=== PATIENT | female | born 1970 | race Caucasian/White ===

== ENCOUNTER → 2016-10-16 | Day surgery (SDC) | payer BC ==
[2016-09-21 08:30] VITALS: BMI 41.0
[~2016-10-16] MED LIST: LEVO100T7 PO; LIDOCAINE HCL 2% 2 ML VIAL (20MG/ML) ONE; PROPOFOL IV EMULSION 10 MG/ML 20 ML VIAL IV ONE; SODIUM CHLORIDE 0.9% 500ML 500 ML IV ONE; VALS160T58 PO
--- NOTE | 2016-10-16 08:50 | Endo History and Physical ---
History & Physical Date of Service: Oct 16, 2016. Chief Complaint: family history of colon cancer Referring Physician: Dr. Yoni Bolaños History of Present Illness 46 yo CF who presents for colonoscopy secondary to family history of colon cancer. Past Surgical History Hx Cardiac Surgery: No Hx Internal Defibrillator: No Hx Pacemaker: No Hx Abdominal Surgery: No Hx of Implantable Prosthesis: No Hx Post-Op Nausea and Vomiting: No Hx Cancer Surgery: Yes (LEFT LUMPECTOMY) Hx Thoracic Surgery: No Hx Orthopedic: No Hx Urinary Tract Surgery: No Family History Colon CA Social History Smoking Status: Never Smoker Hx Substance Use: No Hx Alcohol Use: No Allergies Coded Allergies: No Known Allergies (Verified , 10/16/16) Current Medications Reported Home Medications Medications Dose Route/Sig Max Daily Dose Days Date Category Diovan Hct 160MG/12.5MG (HCTZ/Valsartan) 1 Tab Tab 1 Tab PO QAM 09/21/16 Reported Levothyroxine Sodium 100 Mcg Tab 1 Tab PO QAM 90 09/21/16 Reported Vital Signs Weight (Kilograms): 102.27 Height (Feet): 5 Height (Inches): 2 Date Time Temp Pulse Resp B/P Pulse Ox O2 Delivery O2 Flow Rate FiO2 10/16/16 08:15 37.1 81 18 166/93 96 Room Air Physical Exam General Appearance: WD/WN, no apparent distress Respiratory/Chest: Auscultation: breath sounds normal Cardiovascular: Heart Auscultation: RRR Abdomen: Bowel Sounds: normal Inspection & Palpation: soft, non-distended, no tenderness, guarding & rebound Assessment and Plan Assessment: 46 yo CF who presents for colonoscopy secondary to family history of colon cancer. Plan: Proceed with colonoscopy.
--- NOTE | 2016-10-16 09:08 | Discharge Instructions ---
Endoscopy Patient Instructions Date / Procedure(s) Performed Oct 16, 2016. Colonoscopy Allergy Information Coded Allergies: No Known Allergies (Verified , 10/16/16) Discharge Date / Findings Oct 16, 2016. Normal colonoscopy Medication Instructions OK to resume all medications today as prescribed Reported Home Medications Medications Dose Route/Sig Max Daily Dose Days Date Category Diovan Hct 160MG/12.5MG (HCTZ/Valsartan) 1 Tab Tab 1 Tab PO QAM 09/21/16 Reported Levothyroxine Sodium 100 Mcg Tab 1 Tab PO QAM 90 09/21/16 Reported Provider Instructions Activity Restrictions - No exercising or heavy lifting for 24 hours. - Do not drink alcohol the day of the procedure. - Do not drive a car or operate machinery until the day after the procedure. - Do not make any important decisions or sign important papers in 24 hours after the procedure. Following Day: - Return to full activity which may include returning to work/school. Diet Start your diet with liquids and light foods (jello, soup, juice, toast). Then eat your usual diet if not nauseated. Treatment For Common After Affects For mild abdominal pain, bloating, or excessive gas: - Rest - Eat lightly - Lie on right side Follow-Up Information Follow-up with Dr. Yoni Bolaños as scheduled Anesthesia Information What You Should Know You have had a procedure that required some medicine to reduce anxiety and discomfort. This treatment is called moderate sedation. After receiving the treatment, you may be sleepy, but you will be able to breathe on your own. The effects of the treatment may last for several hours. Follow these instructions along with Activity/Diet recommendations noted above: * Do NOT do anything where dizziness or clumsiness would be dangerous. * Rest quietly at home today, then you can be up and about tomorrow. * Have a responsible person stay with you the rest of today. * You may have had an I.V. today. If so, you may take the dressing off later today. Recommendations Call your doctor if: * Trouble breathing * Continuous vomiting for more than 24 hours * Temperature above 101 degrees * Severe abdominal pain or bloating * Pain not relieved by pain medicine ordered * There is increased drainage or redness from any incision * A large amount of rectal bleeding greater than 2-3 tablespoons. (If you had a polyp/s removed or have hemorrhoids, a small amount of blood - from the rectum is to be expected.) * You have any unanswered questions or concerns. IN THE EVENT OF A SERIOUS EMERGENCY, GO TO THE NEAREST EMERGENCY ROOM Your discharge instructions were prepared by provider Michael Gorman. Patient Instructions Signature Page Jennifer Boone Patient (or Guardian) Signature/Date: I have read and understand the instructions given to me by my caregivers. Caregiver/RN/Doctor Signature/Date: The above-named patient and/or guardian has received patient instructions on this date. + Original Patient Signature Page (only) stays with chart. Please make copy for patient.
--- NOTE | 2016-10-16 09:14 | GI REPORT ---
Procedure Date: 10/16/2016 8:48 AM Procedure: Colonoscopy Indications: Family history of colon cancer in a first-degree relative Medicines: Monitored Anesthesia Care Complications: No immediate complications. Estimated Blood Loss: Estimated blood loss: none. Procedure: Pre-Anesthesia Assessment: - Prior to the procedure, a History and Physical was performed, and patient medications and allergies were reviewed. The patient's tolerance of previous anesthesia was also reviewed. The risks and benefits of the procedure and the sedation options and risks were discussed with the patient. All questions were answered, and informed consent was obtained. Prior Anticoagulants: The patient has taken no previous anticoagulant or antiplatelet agents. ASA Grade Assessment: II - A patient with mild systemic disease. After reviewing the risks and benefits, the patient was deemed in satisfactory condition to undergo the procedure. After I obtained informed consent, the scope was passed under direct vision. Throughout the procedure, the patient's blood pressure, pulse, and oxygen saturations were monitored continuously. The On-site loaner was introduced through the anus and advanced to the terminal ileum. The colonoscopy was performed without difficulty. The patient tolerated the procedure well. The quality of the bowel preparation was good. The terminal ileum, ileocecal valve, appendiceal orifice, and rectum were photographed. Findings: The colon (entire examined portion) appeared normal. Impression: - The entire examined colon is normal. - No specimens collected. Recommendation: - Resume previous diet. - Continue present medications. - Repeat colonoscopy in 5 years for surveillance. - Return to primary care physician as previously scheduled. Michael Gorman DO 10/16/2016 9:13:24 AM This report has been signed electronically. Note Initiated On: 10/16/2016 8:48 AM
--- NOTE | 2016-10-16 09:17 | Anesthesiology Progress Note ---
Anesthesia Post Op Note Date & Time Oct 16, 2016 at 09:16 Vital Signs Pain Intensity: 0 Vital Signs Past 12 Hours Date Time Temp Pulse Resp B/P Pulse Ox O2 Delivery O2 Flow Rate FiO2 10/16/16 08:15 37.1 81 18 166/93 96 Room Air Notes Mental Status: alert / awake / arousable, participated in evaluation Pt Amnestic to Procedure: Yes Nausea / Vomiting: adequately controlled Pain: adequately controlled Airway Patency, RR, SpO2: stable & adequate BP & HR: stable & adequate Hydration State: stable & adequate Anesthetic Complications: no major complications apparent
[2016-10-16 09:40] VITALS: BP 133/80; PULSE 72; O2SAT 95
== END | disposition home or self-care (01) ==
LOC: C.GI 07:40
PROVIDERS: ATTEND Internal Medicine
DX: Z12.11 Encounter for screening for malignant neoplasm of colon (principal); Z83.71 Family history of colonic polyps; I10 Essential (primary) hypertension; Z98.890 Other specified postprocedural states; Z68.41 Body mass index [BMI] 40.0-44.9, adult; Z90.89 Acquired absence of other organs; Z85.3 Personal history of malignant neoplasm of breast

== ENCOUNTER → 2017-12-27 | Outpatient (CLI) | payer BC ==
[~2017-12-27] MED LIST changes: -LIDOCAINE HCL 2% 2 ML VIAL (20MG/ML) ONE; -PROPOFOL IV EMULSION 10 MG/ML 20 ML VIAL IV ONE; -SODIUM CHLORIDE 0.9% 500ML 500 ML IV ONE
== END | disposition home or self-care (01) ==
LOC: C.LABPBG 09:33
PROVIDERS: ATTEND Physician Assistant
DX: E03.9 Hypothyroidism, unspecified (principal)

== ENCOUNTER → 2018-02-08 | Outpatient (CLI) | payer BC | END | disposition home or self-care (01) | LOC: C.LABPBG 08:12 | PROVIDERS: ATTEND Physician Assistant | DX: E03.9 Hypothyroidism, unspecified (principal) ==

== ENCOUNTER 2020-02-02 13:12 | Observation (INO) ==
[2020-02-02] MEDS ORDERED: SODIUM CHLORIDE 0.9% 1000ML 2,000 ML IV ONE (13:40)
[2020-02-02] MEDS ORDERED: FLUCONAZOLE 50 MG TAB PO ONE (13:40)
--- NOTE | 2020-02-02 13:47 | Emergency Department Note ---
History of Present Illness General Chief complaint: Hyperglycemia Stated complaint: HYPERGLYCEMIA Source: patient Mode of arrival: ambulatory Limitations: no limitations History of Present Illness Provider complaint: "My sugars are still high" Onset (ago): week(s) 3 This 50-year-old female patient with significant past medical history of hypertension, hypothyroidism, and breast cancer, presents to the emergency department today, ambulatory, complaining of "my sugars are still high". The patient states 3 weeks ago, she was diagnosed with diabetes. She states her sugars were in the 500s at that time, and per chart review, the patient had a hemoglobin A1c of 13. The patient states at that time, she noticed her tongue was very dry and she was experiencing polyuria and polydipsia. She also complains of anorexia and states she has lost 32 pounds in the past 3 weeks. The patient states 2 weeks ago, she was at [facility] in the emergency department because her symptoms were not improving with the 1000 mg of metformin she was started on daily. The patient states she was given IV fluids and insulin at that time and was feeling well for 1 to 2 days, but returned to feeling lousy after that. She states she saw her PCP at that time and was advised to increase the metformin to 2000 mg daily. She did this, but then was unable to tolerate it 1 week ago, so went back to 1000 mg daily, which she is tolerating well. The patient states she saw her PCP then again on Wednesday who added in 10 units of insulin at bedtime. She has been taking this medication as directed, but continues to get readings on the glucometer of 500 or high for the past 3 days. The patient reports ongoing fatigue. 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 She states she has been limiting her sugar intake and has cut down on soda intake, but she continues to notice the elevated sugars. The patient has not contacted her PCP since Wednesday, and decided to come to the ED for further evaluation and management of her symptoms. Of note, the patient does also complain of vaginal itchiness and dysuria. Home Medications Home Medications Medication Instructions Recorded Confirmed Type levothyroxine 112 mcg capsule 112 mcg PO DAILY #30 cap 08/28/19 02/02/20 Rx blood sugar diagnostic #30 ea 01/12/20 01/31/20 Rx lancets #50 ea 01/12/20 01/31/20 Rx metformin 500 mg tablet 500 mg PO BID tab 01/31/20 02/02/20 History amlodipine [Norvasc] 5 mg PO QAM 02/02/20 02/02/20 History insulin glargine 100 unit/mL 10 units SQ HS ml 02/02/20 02/02/20 History subcutaneous solution valsartan-hydrochlorothiazide 1 tab PO QAM 02/02/20 02/02/20 History Allergies Allergy/AdvReac Type Severity Reaction Status Date / Time No Known Drug Allergies Allergy Verified 02/02/20 13:49 Past Med/Surg History Medical History Carcinoma in situ of breast (Acute) Dyslipidemia associated with type 2 diabetes mellitus Hypertension Hypothyroidism Obesity T2DM (type 2 diabetes mellitus) a1c 11.7% in 01/2020. Surgical History H/O breast surgery History of ear surgery Social History Preferred Language: Turkish Communication Ability: Effective Visual Impairment: No Limitations Hearing Ability: Use of Hearing Aid marital status: Current Living Situation: Alone current occupational status: employed current occupation: [employer] Feels Safe at Home: Yes Smoking Status: Never smoker Hx Alcohol Use: No Hx Substance Use: No Childhood Exposure to Second-Hand Smoke: No caffeine: No Dental Care, Regularly: Yes Physical Activity Frequency: 1-2 Times per Week Seatbelt Use: always Sunscreen Use: Yes Review of Systems A total of 10 systems reviewed and were otherwise negative Physical Exam Vital Signs Vital Signs - 24 hr 02/02/20 13:16 02/02/20 13:48 02/02/20 13:49 Temperature 36.9 C Temperature Source Oral Oral Pulse Rate 93 H Respiratory Rate 18 Blood Pressure 138/80 Blood Pressure Mean 99 Pulse Oximetry 95 97 Oxygen Delivery Method Room Air Room Air Sepsis Recent Fever Within 48 Hours No Sepsis New/Unexplained Change in Mental Status No Sepsis Action Taken by Nursing No Action Required 02/02/20 13:53 02/02/20 14:00 02/02/20 14:10 Temperature Temperature Source Pulse Rate 88 83 80 Respiratory Rate 18 18 27 H Blood Pressure Blood Pressure Mean Pulse Oximetry Oxygen Delivery Method Sepsis Recent Fever Within 48 Hours Sepsis New/Unexplained Change in Mental Status Sepsis Action Taken by Nursing 02/02/20 14:20 02/02/20 14:30 02/02/20 14:40 Temperature Temperature Source Pulse Rate 78 84 103 H Respiratory Rate 27 H 24 23 Blood Pressure Blood Pressure Mean Pulse Oximetry Oxygen Delivery Method Sepsis Recent Fever Within 48 Hours Sepsis New/Unexplained Change in Mental Status Sepsis Action Taken by Nursing 02/02/20 14:50 02/02/20 15:00 02/02/20 15:10 Temperature Temperature Source Pulse Rate 80 78 82 Respiratory Rate 16 19 22 Blood Pressure Blood Pressure Mean Pulse Oximetry Oxygen Delivery Method Sepsis Recent Fever Within 48 Hours Sepsis New/Unexplained Change in Mental Status Sepsis Action Taken by Nursing 02/02/20 15:20 02/02/20 15:30 02/02/20 15:40 Temperature Temperature Source Pulse Rate 82 82 84 Respiratory Rate 22 20 20 Blood Pressure Blood Pressure Mean Pulse Oximetry Oxygen Delivery Method Sepsis Recent Fever Within 48 Hours Sepsis New/Unexplained Change in Mental Status Sepsis Action Taken by Nursing 02/02/20 15:50 Temperature Temperature Source Pulse Rate 72 Respiratory Rate 14 Blood Pressure Blood Pressure Mean Pulse Oximetry Oxygen Delivery Method Sepsis Recent Fever Within 48 Hours Sepsis New/Unexplained Change in Mental Status Sepsis Action Taken by Nursing VITALS: Vitals are noted on the nurse's note and reviewed by myself. Vital signs stable. GENERAL: This is a 50-year-old obese white female, in no acute distress, nondiaphoretic, well-developed well-nourished. SKIN: The skin was without rashes, erythema, edema, or bruising. There is no tenting of the skin. Capillary refill less than 2 seconds. HEAD: Normocephalic atraumatic. EARS: External auditory canals clear, tympanic membranes pearly crockett without erythema or effusion bilaterally. EYES: Pupils equal round and reactive to light and accommodation. Conjunctivae without injection, sclerae without icterus. Extraocular movements intact. NOSE: Patent, turbinates without inflammation or discharge. No sinus tenderness. MOUTH: Mucous membranes moist. Tonsils are not enlarged. Pharynx without erythema or exudate. Uvula midline. Airway patent. Tongue does not deviate. NECK: Supple without nuchal rigidity. No lymphadenopathy. No thyromegaly. Cervical spine is nontender. No JVD. HEART: Regular rate and rhythm without murmurs gallops or rubs. LUNGS: Clear to auscultation bilaterally without wheezes, rales or rhonchi. No retractions or accessory muscle use. ABDOMEN: Positive bowel sounds x 4. Normal tympanic percussion. Soft, nontender, without masses or organomegaly. Avery sign negative. No guarding or rebound tenderness. MUSCULOSKELETAL: No muscle atrophy, erythema, or edema noted. Full range of motion without joint tenderness in all extremities. No tenderness to palpation. Normal gait. Strength 5/5 throughout. NEURO: Patient was alert and oriented to person place and time. Normal sensation to light and sharp touch. No focal neurological deficits. Course Course The patient was seen and evaluated as above. An order was placed for continuous cardiac monitoring. The monitor shows a sinus rhythm with sinus arrhythmia at a rate of 72 bpm. IV access obtained, labs drawn. Patient medicated with IV fluid bolus and Diflucan. Labs reviewed by myself. I discussed the case with the ED pharmacist, January. She made recommendations on insulin treatment. Patient was medicated with IV and subcutaneous insulin. I discussed the findings with the patient at bedside. I did recommend admission. The patient was agreeable. I discussed the case with the manager office services. The [facility] hospitalist was consulted. I did discuss the case with the [facility] hospitalist, Dr. Guerrero who did agree to see and evaluate the patient for admission. Administered Medications Discontinued Medications Fluconazole (Diflucan) 150 mg PO NOW ONE Stop: 02/02/20 13:41 Last Admin: 02/02/20 14:39 Dose: 150 mg Documented by: [id number] Sodium Chloride (Nss 1000ml) 2,000 mls @ 999 mls/hr IV .Q2H1M ONE Stop: 02/02/20 15:40 Last Infusion: 02/02/20 15:59 Dose: 0 mls/hr Documented by: [id number] Admin: 02/02/20 13:53 Dose: 999 mls/hr Documented by: [id number] Insulin Aspart (Novolog Per Unit) 5 units SC NOW STA Stop: 02/02/20 14:42 Last Admin: 02/02/20 15:00 Dose: 5 units Documented by: [id number] Cosigned by: [id number] Insulin Glargine (Lantus Per Unit) 20 units SQ NOW STA Stop: 02/02/20 14:42 Last Admin: 02/02/20 15:01 Dose: 20 units Documented by: [id number] Cosigned by: [id number] Insulin Human Regular (Novolin R U-100 Per Unit) 10 units IV NOW STA Stop: 02/02/20 14:42 Last Admin: 02/02/20 15:01 Dose: 10 units Documented by: [id number] Cosigned by: [id number] Potassium Chloride (Klor-Con M20) 20 meq PO NOW STA Stop: 02/02/20 14:42 Last Admin: 02/02/20 15:00 Dose: 20 meq Documented by: [id number] Medical Decision Making Differential Diagnosis Differential diagnosis includes hyperglycemia, HHS, DKA, diabetes, infection, electrolyte abnormality, malignancy, among others Medical Records Attestation: I reviewed the patient's medical records. Home Medications Current Medication List: was personally reviewed by me Laboratory Data Attestation: I reviewed the patient's lab results. No leukocytosis, anemia, thrombocytopenia. Renal, hepatic function, and electr olytes without significant abnormality. Blood glucose 683. Beta hydroxybutyric acid 7.81. Urinalysis positive for 3+ glucose, but no evidence of infection. Urine test negative. Result diagrams: 02/02/20 13:45 02/02/20 13:45 Lab Results 02/02/20 02/02/20 02/02/20 Range/Units 13:44 13:45 13:45 WBC 7.66 (4.8-10.8) K/uL RBC 5.46 H (4.2-5.4) M/uL Hgb 16.7 H (12.0-16.0) g/dL Hct 45.3 (37-47) % MCV 83.0 (80-100) fL MCH 30.6 (25-34) pg MCHC 36.9 H (32-36) g/dL Plt Count 207 (130-400) K/uL Immature Gran % (Auto) 0.3 % Neut % (Auto) 63.1 % Lymph % (Auto) 25.2 % [place] % (Auto) 9.3 % Eos % (Auto) 1.7 % Baso % (Auto) 0.4 % Immature Gran # (Auto) 0.02 (0.00-0.02) K/uL Neut # (Auto) 4.84 (1.4-6.5) K/uL Lymph # (Auto) 1.93 (1.2-3.4) K/uL [place] # (Auto) 0.71 H (0.11-0.59) K/uL Eos # (Auto) 0.13 (0-0.5) K/uL Baso # (Auto) 0.03 (0-0.2) K/uL Sodium 124 L (136-145) mmol/L Potassium 3.8 (3.5-5.1) mmol/L Chloride 87 L (98-107) mmol/L Carbon Dioxide 29 (21-32) mmol/L Anion Gap 8.0 (3-11) BUN 16 (7-18) mg/dl Creatinine 1.09 (0.6-1.2) mg/dl Est Cr Clr Drug Dosing 65.7 ml/min Est GFR ( Amer) 67.6 Est GFR (Non-Af Amer) 58.3 BUN/Creatinine Ratio 15.0 (10-20) Glucose 683 H* (70-99) mg/dl POC Glucose > 600 H* (70-99) mg/dl Calcium 9.4 (8.5-10.1) mg/dl Total Bilirubin 1.8 H (0.2-1) mg/dl AST 16 (15-37) U/L ALT 39 (12-78) U/L Alkaline Phosphatase 139 H (45-117) U/L Total Protein 7.5 (6.4-8.2) gm/dl Albumin 3.9 (3.4-5.0) gm/dl Globulin 3.6 (2.5-4.0) gm/dl Albumin/Globulin Ratio 1.1 (0.9-2) Lipase 199 (73-393) U/L Beta-Hydroxybutyric Acd 7.81 H (0.2-2.81) mg/dl Urine Color Urine Appearance (Clear) Urine pH (4.5-7.5) Ur Specific [place] (1.000-1.030) Urine Protein (Negative) Urine Glucose (UA) (Negative) Urine Ketones (Negative) Urine Blood (Negative) Urine Nitrite (Negative) Urine Bilirubin (Negative) Urine Urobilinogen (Negative) Ur Leukocyte Esterase (Negative) Urine WBC (Auto) Urine RBC (Auto) U Hyaline Cast (Auto) U Epithel Cells (Auto) Urine Bacteria (Auto) Urine RBC (0-4) /hpf Urine WBC (0-5) /hpf Ur Epithelial Cells (0-5) /lpf Urine Bacteria (Negative) Hyaline Casts (0-5) /lpf POC Ur Test (NEG) 02/02/20 02/02/20 02/02/20 Range/Units 13:45 13:52 14:07 WBC (4.8-10.8) K/uL RBC (4.2-5.4) M/uL Hgb (12.0-16.0) g/dL Hct (37-47) % MCV (80-100) fL MCH (25-34) pg MCHC (32-36) g/dL Plt Count (130-400) K/uL Immature Gran % (Auto) % Neut % (Auto) % Lymph % (Auto) % [place] % (Auto) % Eos % (Auto) % Baso % (Auto) % Immature Gran # (Auto) (0.00-0.02) K/uL Neut # (Auto) (1.4-6.5) K/uL Lymph # (Auto) (1.2-3.4) K/uL [place] # (Auto) (0.11-0.59) K/uL Eos # (Auto) (0-0.5) K/uL Baso # (Auto) (0-0.2) K/uL Sodium (136-145) mmol/L Potassium (3.5-5.1) mmol/L Chloride (98-107) mmol/L Carbon Dioxide (21-32) mmol/L Anion Gap (3-11) BUN (7-18) mg/dl Creatinine (0.6-1.2) mg/dl Est Cr Clr Drug Dosing ml/min Est GFR ( Amer) Est GFR (Non-Af Amer) BUN/Creatinine Ratio (10-20) Glucose (70-99) mg/dl POC Glucose > 600 H* (70-99) mg/dl Calcium (8.5-10.1) mg/dl Total Bilirubin (0.2-1) mg/dl AST (15-37) U/L ALT (12-78) U/L Alkaline Phosphatase (45-117) U/L Total Protein (6.4-8.2) gm/dl Albumin (3.4-5.0) gm/dl Globulin (2.5-4.0) gm/dl Albumin/Globulin Ratio (0.9-2) Lipase (73-393) U/L Beta-Hydroxybutyric Acd (0.2-2.81) mg/dl Urine Color Yellow Urine Appearance Clear (Clear) Urine pH 6.5 (4.5-7.5) Ur Specific [place] 1.034 H (1.000-1.030) Urine Protein Negative (Negative) Urine Glucose (UA) 3+ H (Negative) Urine Ketones Trace H (Negative) Urine Blood Trace H (Negative) Urine Nitrite Negative (Negative) Urine Bilirubin Negative (Negative) Urine Urobilinogen Negative (Negative) Ur Leukocyte Esterase Negative (Negative) Urine WBC (Auto) Not Reportable Urine RBC (Auto) Not Reportable U Hyaline Cast (Auto) Not Reportable U Epithel Cells (Auto) Not Reportable Urine Bacteria (Auto) Not Reportable Urine RBC 5-10 H (0-4) /hpf Urine WBC 10-30 H (0-5) /hpf Ur Epithelial Cells 0-5 (0-5) /lpf Urine Bacteria Negative (Negative) Hyaline Casts 0-5 (0-5) /lpf POC Ur Test NEG (NEG) 02/02/20 Range/Units 16:00 WBC (4.8-10.8) K/uL RBC (4.2-5.4) M/uL Hgb (12.0-16.0) g/dL Hct (37-47) % MCV (80-100) fL MCH (25-34) pg MCHC (32-36) g/dL Plt Count (130-400) K/uL Immature Gran % (Auto) % Neut % (Auto) % Lymph % (Auto) % [place] % (Auto) % Eos % (Auto) % Baso % (Auto) % Immature Gran # (Auto) (0.00-0.02) K/uL Neut # (Auto) (1.4-6.5) K/uL Lymph # (Auto) (1.2-3.4) K/uL [place] # (Auto) (0.11-0.59) K/uL Eos # (Auto) (0-0.5) K/uL Baso # (Auto) (0-0.2) K/uL Sodium (136-145) mmol/L Potassium (3.5-5.1) mmol/L Chloride (98-107) mmol/L Carbon Dioxide (21-32) mmol/L Anion Gap (3-11) BUN (7-18) mg/dl Creatinine (0.6-1.2) mg/dl Est Cr Clr Drug Dosing ml/min Est GFR ( Amer) Est GFR (Non-Af Amer) BUN/Creatinine Ratio (10-20) Glucose (70-99) mg/dl POC Glucose 300 H (70-99) mg/dl Calcium (8.5-10.1) mg/dl Total Bilirubin (0.2-1) mg/dl AST (15-37) U/L ALT (12-78) U/L Alkaline Phosphatase (45-117) U/L Total Protein (6.4-8.2) gm/dl Albumin (3.4-5.0) gm/dl Globulin (2.5-4.0) gm/dl Albumin/Globulin Ratio (0.9-2) Lipase (73-393) U/L Beta-Hydroxybutyric Acd (0.2-2.81) mg/dl Urine Color Urine Appearance (Clear) Urine pH (4.5-7.5) Ur Specific [place] (1.000-1.030) Urine Protein (Negative) Urine Glucose (UA) (Negative) Urine Ketones (Negative) Urine Blood (Negative) Urine Nitrite (Negative) Urine Bilirubin (Negative) Urine Urobilinogen (Negative) Ur Leukocyte Esterase (Negative) Urine WBC (Auto) Urine RBC (Auto) U Hyaline Cast (Auto) U Epithel Cells (Auto) Urine Bacteria (Auto) Urine RBC (0-4) /hpf Urine WBC (0-5) /hpf Ur Epithelial Cells (0-5) /lpf Urine Bacteria (Negative) Hyaline Casts (0-5) /lpf POC Ur Test (NEG) ECG Data Attestation: I personally reviewed and interpreted this ECG as follows: Indication: + other (Arrhythmia) Rate (beats per minute): 78 Rhythm: + normal sinus ECG ST segments: no ST depression, no ST elevation and no T-wave inversions Comparison ECG Date: no prior available Blood Pressure Blood Pressure Findings: Elevated blood pressure Blood Pressure Disposition: elevated BP felt to be situational MDM Narrative This 50-year-old female patient presents the emergency department today for evaluation of hyperglycemia. The patient is a newly diagnosed diabetic within the past few weeks. She has been consistently getting blood sugars in the 500s, and has not responded to the insulin she has been receiving as an outpatient. The patient is complaining of polydipsia and polyuria. She has lost 32 pounds in the past 3 weeks. Work-up here in the ED consistent with hyperglycemia with a blood sugar of 683. I do question whether this is a type I versus type 2 d iabetes, despite the patient's age. I recommend insulin treatment and inpatient management at this time for better glycemic control. The patient was agreeable. [facility] and [facility]. Please see their dictation regarding ongoing care. The chart was completed utilizing [employer] Speech voice recognition software. Grammatical errors, random word insertions, pronoun errors, and incomplete sentences are an occasional consequence of this system due to software limitations, ambient noise, and hardware issues. Any formal questions or concerns about the content, text, or information contained within the body of this dictation should be directly addressed to the provider for clarification. Impression & Plan Hyperglycemia, Polyuria, Polydipsia, Vulvovaginal candidiasis Discharge Plan Visit Data Chief Complaint: Hyperglycemia Stated Complaint: HYPERGLYCEMIA ED Provider: Lincoln Carroll ED Midlevel Provider: Georgie Hummel Discharge Problem: Hyperglycemia, Polyuria, Polydipsia, Vulvovaginal candidiasis Patient Disposition: Admitted As Inpatient Condition: Good Forms Stand Alone Forms: My [facility] Prescriptions Prescriptions: No Action levothyroxine 112 mcg capsule 112 mcg PO DAILY Qty: 30 RF: 5 (DME) lancets [Accu-Chek Multiclix Lancet] Misc See Rx Instructions .ROUTE .MEDSUPPLY Qty: 50 RF: 2 (DME) blood sugar diagnostic [Accu-Chek Nyasia Plus test strp] Strip See Rx Instructions .ROUTE .MEDSUPPLY Qty: 30 RF: 2 insulin glargine 100 unit/mL solution 10 units SQ HS RF: 0 metformin 500 mg tablet 500 mg PO BID RF: 0 valsartan-hydrochlorothiazide 160-12.5 mg tablet 1 tab PO QAM RF: 0 amlodipine [Norvasc] 5 mg tablet 5 mg PO QAM RF: 0 Referrals Referrals: Yoni Bolaños MD [Primary Care Provider] -
[2020-02-02 14:32] LABS: Albumin Globulin Ratio 1.1 (0.9-2); Albumin Level 3.9 gm/dl (3.4-5.0); Beta-Hydroxybutyrate 7.81 mg/dl (0.2-2.81); Bilirubin,Total 1.8 mg/dl (0.2-1); Calcium 9.4 mg/dl (8.5-10.1); Creatinine Clr Calc Pharmacy 65.7 ml/min; Est GFR (African American) 67.6; Est GFR (Non-African American) 58.3; Globulin 3.6 gm/dl (2.5-4.0); Potassium 3.8 mmol/L (3.5-5.1); Total Protein 7.5 gm/dl (6.4-8.2)
[2020-02-02 14:33] LABS: Hematocrit (blood only) 45.3 % (37-47); Hemoglobin 16.7 g/dL (12.0-16.0); Mean Corpuscular Hemoglobin 30.6 pg (25-34); Mean Corpuscular Hgb Conc 36.9 g/dL (32-36); Platelet Count 207 K/uL (130-400); Red Blood Count 5.46 M/uL (4.2-5.4); White Blood Count 7.66 K/uL (4.8-10.8)
[2020-02-02 14:34] LABS: Basophils # (auto) 0.03 K/uL (0-0.2); Basophils % (auto) 0.4 %; Eosinophils # (auto) 0.13 K/uL (0-0.5); Eosinophils % (auto) 1.7 %; Immature Granulocytes # (auto) 0.02 K/uL (0.00-0.02); Immature Granulocytes % (auto) 0.3 %; Lymphocytes # (auto) 1.93 K/uL (1.2-3.4); Lymphocytes % (auto) 25.2 %; Monocytes # (auto) 0.71 K/uL (0.11-0.59); Monocytes % (auto) 9.3 %; Neutrophils # (auto) 4.84 K/uL (1.4-6.5); Neutrophils % (auto) 63.1 %
[2020-02-02 14:39] LABS: Appearance Urine Clear (Clear); Bilirubin Urine Negative (Negative); Blood Urine Trace (Negative); Color Urine Yellow; Glucose Urine UA 3+ (Negative); Ketones Urine Trace (Negative); Leukocyte Esterase Urine Negative (Negative); Nitrite Urine Negative (Negative); Protein Urine Negative (Negative); Specific Gravity Urine 1.034 (1.000-1.030); Urobilinogen Urine Negative (Negative); pH Urine 6.5 (4.5-7.5)
[2020-02-02] MEDS ORDERED: INSULIN ASPART PER UNIT SC STA (14:41)
[2020-02-02] MEDS ORDERED: NovoLIN-R INSULIN PER UNIT CHARGE IV STA (14:41)
[2020-02-02] MEDS ORDERED: POTASSIUM CHLORIDE 20 MEQ TABCR PO STA (14:41)
[2020-02-02] MEDS ORDERED: LANTUS PER UNIT CHARGE SQ STA (14:41)
[2020-02-02 14:52] LABS: Epithelial Cell Urine 0-5 /lpf (0-5)
[2020-02-02 14:53] LABS: Bacteria Urine Negative (Negative); Hyaline Casts Urine 0-5 /lpf (0-5)
--- NOTE | 2020-02-02 15:32 | Electrocardiogram Report ---
Test Reason : Blood Pressure : / mmHG Vent. Rate : 078 BPM Atrial Rate : 078 BPM P-R Int : 162 ms QRS Dur : 096 ms QT Int : 366 ms P-R-T Axes : 025 -09 028 degrees QTc Int : 417 ms Normal sinus rhythm Minimal voltage criteria for LVH, may be normal variant possible Inferior infarct , age undetermined Abnormal ECG Confirmed by Sumit Cifuentes ([id number]) on 02/02/2020 3:31:52 PM Referred By: REFERRED SELF Confirmed By:Rustam Cifuentes
--- NOTE | 2020-02-02 17:07 | History & Physical Report ---
Date of Service February 02, 2020 Assessment & Plan (1) T2DM (type 2 diabetes mellitus): Patient is hyperglycemic, likely secondary to inadequate treatment of her diabetes. She may have a mild starvation ketosis but is not in isac DKA at this time. Already improved with insulin given the emergency room. For now we will continue glargine insulin 20 units nightly, the next dose to be given tomorrow night. I will start sliding scale, I will follow her insulin needs in the next 24 hours to craft an insulin regimen that can be used as an outpatient. 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 For now we will hold off on metformin. (2) Hypertension: Patient is on amlodipine 5 mg daily along with valsartan/hydrochlorothiazide combination pill which we will continue. Patient's blood pressure is acceptable at this time. (3) Hypothyroidism: Patient is on levothyroxine 112 mcg which we will continue. History of Present Illness Primary Care Provider: Yoni Bolaños MD This is a 50-year-old female with past medical history of hypertension, hypothyroidism and a recent diagnosis of type 2 diabetes mellitus who presents today with hyperglycemia. Patient is a decent historian. Patient was diagnosed approximately 3 weeks ago. At that time, her blood sugars were over 500. She was started on metformin 500 mg daily. She was following her blood sugars but found that they remained extremely high. She presented to [place] emergency room on 01/18 and was told to increase her metformin to 500 mg twice daily. At that time, hemoglobin A1c was 13. This was not sufficient and the patient saw her primary care physician 2 days ago. He gave her a sample of insulin told her to use 10 units at night. (We suspect this may have been Basagl ar). Patient's blood sugars did not improve and she presented to the emergency room for further evaluation. Patient endorsed on multiple symptoms of diabetes including blurred vision, polydipsia, polyuria, ongoing thirst. She says she has had generalized weakness and very little energy for the past few weeks. 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 Patient's blood sugar on [facility] was initially 683. Patient was given Lantus 20 units subcu, NovoLog 5 units subcu, and regular insulin 10 units IV prior to my arrival. Accu-Chek performed while I was in the room had sugar down to 300 Allergies Allergy/AdvReac Type Severity Reaction Status Date / Time No Known Drug Allergies Allergy Verified 02/02/20 13:49 Home Medications Home Medications Medication Instructions Recorded Confirmed Type levothyroxine 112 mcg capsule 112 mcg PO DAILY #30 cap 08/28/19 02/02/20 Rx blood sugar diagnostic #30 ea 01/12/20 01/31/20 Rx lancets #50 ea 01/12/20 01/31/20 Rx metformin 500 mg tablet 500 mg PO BID tab 01/31/20 02/02/20 History amlodipine [Norvasc] 5 mg PO QAM 02/02/20 02/02/20 History insulin glargine 100 unit/mL 10 units SQ HS ml 02/02/20 02/02/20 History subcutaneous solution valsartan-hydrochlorothiazide 1 tab PO QAM 02/02/20 02/02/20 History Past Med/Surg History Medical History Carcinoma in situ of breast (Acute) Dyslipidemia associated with type 2 diabetes mellitus Hypertension Hypothyroidism Obesity T2DM (type 2 diabetes mellitus) a1c 11.7% in 01/2020. Surgical History H/O breast surgery History of ear surgery Social History Preferred Language: Swedish Communication Ability: Effective Visual Impairment: No Limitations Hearing Ability: Use of Hearing Aid marital status: Current Living Situation: Alone current occupational status: employed current occupation: [employer] Feels Safe at Home: Yes Smoking Status: Never smoker Hx Alcohol Use: No Hx Substance Use: No Childhood Exposure to Second-Hand Smoke: No caffeine: No Dental Care, Regularly: Yes Physical Activity Frequency: 1-2 Times per Week Seatbelt Use: always Sunscreen Use: Yes Review of Systems Constitutional: + fatigue and + increased appetite; no fever, no chills, no weakness, no weight loss and no weight gain Eyes: as per Subjective / HPI Respiratory: no cough, no chest congestion, no dyspnea and no dyspnea on exertion Cardiovascular: no chest pain, no orthopnea, no palpitations, no lightheadedness and no edema Gastrointestinal: no abdominal pain, no nausea, no vomiting, no constipation and no diarrhea/loose stools Genitourinary: no dysuria, no difficulty urinating, no urinary frequency, no urinary hesitancy, no urinary urgency and no flank pain Musculoskeletal: no back pain, no neck pain, no joint pain, no stiffness and no myalgia Integumentary: no rash Neurologic: no gait abnormality, no unsteadiness, no falls and no generalized weakness Endocrine: + fatigue, + polydipsia, + polyphagia and + polyuria Physical Exam Constitutional: cooperative; no acute distress Neck: trachea midline, no thyromegaly Respiratory: normal respiratory effort Auscultation: lungs clear to auscultation bilaterally; no crackles, no rales, no rhonchi and no wheezes Cardiovascular: Rate/Rhythm: regular rate and regular rhythm Heart Sounds: normal S1 and normal S2 Gastrointestinal (Abdomen): Inspection/Auscultation: abdomen normal to inspection Percussion/Palpation: abdomen soft; abdomen nontender, no guarding, abdomen not rigid and no hepatosplenomegaly Skin: no rashes, warm and dry Results & Data Results & Data ([facility]) Vital Signs (Past 12 Hours) Vital Signs Temp Pulse Resp BP Pulse Ox 02/02/20 15:50 72 14 02/02/20 15:40 84 20 02/02/20 15:30 82 20 02/02/20 15:20 82 22 02/02/20 15:10 82 22 02/02/20 15:00 78 19 02/02/20 14:50 80 16 02/02/20 14:40 103 H 23 02/02/20 14:30 84 24 02/02/20 14:20 78 27 H 02/02/20 14:10 80 27 H 02/02/20 14:00 83 18 02/02/20 13:53 88 18 02/02/20 13:49 97 02/02/20 13:48 36.9 C 02/02/20 13:16 93 H 18 138/80 95 Laboratory Results The BCs of 7.6, hemoglobin 16.7, hematocrit of 45.3. Platelet count of 207. Sodium of 124, potassium 3.8, chloride 87, carbon dioxide 29, BUN 16 with a creatinine of 1.09. Glucose at that time was 683, which corrects sodium to 133. Last hemoglobin A1c was 01/18 which was 13. And 01/11 it was 11.7. Total bilirubin is 1.8. Alk phos is 139. Transaminases are normal. Beta hydroxybutyric acid is 7.81. UA has 3+ glucose with trace ketones and trace blood, otherwise unremarkable. PG Care Time/CCT Total # of Minutes Spent Total Time Spent with Patient: Total time spent is greater than 50% in coordination of care (as documented) at patient's floor/unit and/or counseling patient: Coding Level of Care Code 10322 OBS Care - Level 3 Diagnoses T2DM (type 2 diabetes mellitus) E11.9 Hypertension I10 Hypothyroidism E03.9
[2020-02-02] MEDS ORDERED: GLUCOSE 40% GEL 15 GM TUBE PO PRN (18:09)
[2020-02-02] MEDS ORDERED: GLUCOSE 10 TABS/TUBE PO PRN (18:09)
[2020-02-02] MEDS ORDERED: ONDANSETRON INJ 2 MG/ML 2 ML VIAL IV PRN (18:09)
[2020-02-02] MEDS ORDERED: DEXTROSE 50% 50 ML SYRINGE IV PRN (18:09)
[2020-02-02] MEDS ORDERED: ACETAMINOPHEN 325 MG TAB PO PRN (18:09)
[2020-02-02] MEDS ORDERED: CARBOHYDRATES FOR HYPOGLYCEMIA PO PRN (18:09)
[2020-02-02] MEDS ORDERED: GLUCAGON FOR INJ 1 MG VIAL SQ PRN (18:09)
[2020-02-02] MEDS ORDERED: PHARMACY GLYCEMIC MGMT CONSULT PRN (18:15)
[2020-02-02] MEDS ORDERED: INSULIN ASPART 100 UNITS/ML 3 ML PEN SC SCH ×3 (19:10→21:00)
--- NOTE | 2020-02-02 19:20 | Pharmacy Report ---
Glycemic Control Consultation - Date of Service February 02, 2020 - Scope Scope: Glycemic Pharmacist consulted for glycemic control and to write orders per [facility] inpatient glycemic control protocol. - Objective Weight: 97.3 kg Accuchecks BSG (last 24hrs): 02/02/20 02/02/20 02/02/20 13:44 13:45 13:45 Glucose 683 H* POC Glucose > 600 H* > 600 H* 02/02/20 02/02/20 16:00 18:28 Glucose POC Glucose 300 H 222 H Laboratory Data (last 24hrs): 02/02/20 13:45 Potassium 3.8 Carbon Dioxide 29 Anion Gap 8.0 Creatinine 1.09 Est Cr Clr Drug Dosing 65.7 Beta-Hydroxybutyric Acd 7.81 H - Recent Pertinent Medications Outpatient Anti-diabetic Regimen: * Metformin 500 mg PO BIDM * Sample insulin from primary care provider (presumed to be insulin glargine) 10 units SC HS * Started 2 days prior to admission * A1c = 13 % 01/19/20 - Assessment & Plan Assessment & Plan: ASSESSMENT: * SS is a 50 year old female admitted for hyperglycemia (BSG > 600 mg/dL on admission) * BSGs have responded nicely to initial treatment of Lantus 20 units, Novolog 5 units SC, and IV regular insulin 10 units * BSG at 1828 of 222 mg/dL * Will try and stick with once daily basal insulin HS to facilitate dose selection for discharge * Anion Gap of 8, bicarb of 29 PLAN FOR INPATIENT GLYCEMIC CONTROL: * Holding outpatient oral diabetes medications * Basal insulin * will reassess basal need in AM * Bolus insulin * NovoLog per scale ACHS or Q6hrs while NPO * Goal Range: Low 120 mg/dL - High 150 mg/dL * Correction Factor: 25 mg/dL/unit * Nutritional / Prandial insulin per carb ratio of 1 unit per 8 grams CHO consumed * Overnight checks at 00,04 tonight * Please note that the plan above was derived based on current level of insulin resistance and hospital stress. These recommendations are appropriate for inpatient admission only. Plan of care upon discharge will need to be reassessed to avoid potential outpatient hypo/hyperglycemia. Thank you.
[2020-02-03] MEDS: INSULIN ASPART 100 UNITS/ML 3 ML PEN SC SCH ×6 (00:11→20:49)
[2020-02-03] MEDS: SODIUM CHLORIDE 0.9% 1000ML 1,000 ML IV SCH ×3 (00:50→20:54)
[2020-02-03 06:02] LABS: Basophils # (auto) 0.03 K/uL (0-0.2); Basophils % (auto) 0.5 %; Eosinophils # (auto) 0.24 K/uL (0-0.5); Eosinophils % (auto) 4.1 %; Hematocrit (blood only) 40.8 % (37-47); Hemoglobin 14.4 g/dL (12.0-16.0); Immature Granulocytes # (auto) 0.01 K/uL (0.00-0.02); Immature Granulocytes % (auto) 0.2 %; Lymphocytes # (auto) 2.83 K/uL (1.2-3.4); Mean Corpuscular Hemoglobin 30.1 pg (25-34); Mean Corpuscular Hgb Conc 35.3 g/dL (32-36); Mean Corpuscular Volume 85.4 fL (80-100); Mean Platelet Volume 11.4 fL (7.4-10.4); Monocytes % (auto) 8.5 %; Neutrophils # (auto) 2.28 K/uL (1.4-6.5); Neutrophils % (auto) 38.7 %; Platelet Count 164 K/uL (130-400); RDW Coefficient of Variation 12.5 % (11.5-14.5); RDW Standard Deviation 38.6 fL (36.4-46.3); Red Blood Count 4.78 M/uL (4.2-5.4); White Blood Count 5.89 K/uL (4.8-10.8)
[2020-02-03] MEDS: LEVOTHYROXINE SODIUM 112 MCG TABLET PO SCH (06:27)
[2020-02-03 06:48] LABS: BUN Creatinine Ratio 19.9 (10-20); Calcium 8.7 mg/dl (8.5-10.1); Creatinine Clr Calc Pharmacy 95.5 ml/min; Est GFR (African American) 106.2; Est GFR (Non-African American) 91.6; Potassium 3.2 mmol/L (3.5-5.1)
[2020-02-03] MEDS: VALSARTAN 80 MG TAB PO SCH (08:46)
[2020-02-03] MEDS: AMLODIPINE BESYLATE 5 MG TAB PO SCH (08:46)
[2020-02-03] MEDS: hydroCHLOROthiazide 25 MG TAB PO SCH (08:46)
[2020-02-03] MEDS ORDERED: INSULIN GLARGINE SOLOSTAR 100 UNITS/ML 3 ML PEN SC SCH (09:00)
--- NOTE | 2020-02-03 10:00 | Hospitalist Progress Note ---
Date of Service February 03, 2020 Assessment & Plan (1) T2DM (type 2 diabetes mellitus): Patient is hyperglycemic, likely secondary to inadequate treatment of her diabetes. She may have a mild starvation ketosis but is not in isac DKA at this time. Already improved with insulin given the emergency room. On the following day, her blood sugar is better controlled. However, will need to follow her trend of her blood sugars before we discharge. For now we will continue glargine insulin 20 units nightly/. 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 For now we will hold off on metformin. Hopefully with further information, we can discharge her tomorrow. (2) Hypertension: Patient is on amlodipine 5 mg daily along with valsartan/hydrochlorothiazide combination pill which we will continue. Patient's blood pressure is acceptable at this time. (3) Hypothyroidism: Patient is on levothyroxine 112 mcg which we will continue. Admission and Anticipated Discharge Date Admission Date: February 02, 2020 Subjective Patient is a 50 yo female who reports feeling well. She has no new complaints. Review of Systems Review of Systems: All systems reviewed & are unremarkable except as noted in HPI & below Constitutional: no fever, no chills, no weakness and no weight gain Eyes: as per Subjective / HPI Endocrine: + fatigue, + polydipsia, + polyphagia and + polyuria Physical Exam Physical Exam: Constitutional: cooperative; no acute distress Neck: trachea midline, no thyromegaly Respiratory: normal respiratory effort Auscultation: lungs clear to auscultation bilaterally; no crackles, no rales, no rhonchi and no wheezes Cardiovascular: Rate/Rhythm: regular rate and regular rhythm Heart Sounds: normal S1 and normal S2 Gastrointestinal (Abdomen): Inspection/Auscultation: abdomen normal to inspection Percussion/Palpation: abdomen soft; abdomen nontender, no guarding, abdomen not rigid and no hepatosplenomegaly Skin: no rashes, warm and dry Constitutional: WD/WN, vitals as above well developed and well nourished Eyes: PERRL, conjunctivae normal, anicteric sclerae ENMT: external ear and nose normal, oropharynx normal Neck: trachea midline, no thyromegaly Respiratory: normal respiratory effort, lungs clear to auscultation Cardiovascular: RRR, no murmur, no edema Gastrointestinal (Abdomen): normal bowel sounds, soft, nontender, no hepatosplenomegaly Skin: no rashes, warm and dry Neurologic: normal touch/pain/proprioception Lymphatic: no cervical or axillary lymphadenopathy Results & Data Results & Data ([facility]) Vital Signs (Past 12 Hours) Vital Signs Temp Pulse Resp BP Pulse Ox 02/03/20 07:24 36.3 C L 69 16 124/79 97 02/02/20 23:07 36.6 C 65 16 115/61 97 PG Care Time/CCT Total # of Minutes Spent Total Time Spent with Patient: Total time spent is greater than 50% in coordination of care (as documented) at patient's floor/unit and/or counseling patient: Coding Level of Care Code 31404 Subseq Obs Care Lvl 3 Diagnoses T2DM (type 2 diabetes mellitus) E11.9 Hypertension I10 Hypothyroidism E03.9 Time Spent (min) 35
[2020-02-03] MEDS: POTASSIUM CHLORIDE 20 MEQ TABCR PO SCH ×2 (11:39→20:48)
[2020-02-03] MEDS ORDERED: INSULIN HUMAN REGULAR PER UNIT 7 UNITS in SYRINGE 6.93 ML IV ONE (12:45)
--- NOTE | 2020-02-03 14:40 | Pharmacy Report ---
Pharmacy Glycemic Short Note 2 - Date of Service February 03, 2020 - Glycemic Short BSG Results (Last 24 hours): 02/02/20 02/02/20 02/02/20 16:00 18:28 23:51 Glucose POC Glucose 300 H 222 H 360 H* 02/02/20 02/03/20 02/03/20 23:54 04:12 04:55 Glucose 255 H POC Glucose 320 H* 248 H 02/03/20 02/03/20 08:00 12:13 Glucose POC Glucose 255 H 318 H* ASSESSMENT: 02/02: * Patient received total of 50 units of insulin yesterday, of which 20 were basal, 10 of iv insulin, and 20 correctional * Fasting BSG elevated this am at 255 mg/dL - increased basal to 25 units this AM and also tightened CF/CR * BSG at lunch 318 - will give small IV insulin bolus / keep same parameters for novolog as just adjusted. BSG trending down on recheck after IV insulin given * Will add overnight checks to ensure BSG stable 02/01: * SS is a 50 year old female admitted for hyperglycemia (BSG > 600 mg/dL on admission) * BSGs have responded nicely to initial treatment of Lantus 20 units, Novolog 5 units SC, and IV regular insulin 10 units * BSG at 1828 of 222 mg/dL * Will try and stick with once daily basal insulin HS to facilitate dose selection for discharge * Anion Gap of 8, bicarb of 29 PLAN FOR INPATIENT GLYCEMIC CONTROL: * Holding outpatient oral diabetes medications * Basal insulin * increase to 25 units this AM * Bolus insulin * NovoLog per scale ACHS or Q6hrs while NPO * Goal Range: Low 120 mg/dL - High 150 mg/dL * Correction Factor: 20 mg/dL/unit * Nutritional / Prandial insulin per carb ratio of 1 unit per 6 grams CHO consumed * Overnight checks at 00,04 tonight * Please note that the plan above was derived based on current level of insulin resistance and hospital stress. These recommendations are appropriate for inpatient admission only. Plan of care upon discharge will need to be reassessed to avoid potential outpatient hypo/hyperglycemia. Thank you.
[2020-02-03] MEDS ORDERED: LANTUS PER UNIT CHARGE SQ SCH (21:00)
[2020-02-04] MEDS: INSULIN ASPART 100 UNITS/ML 3 ML PEN SC SCH ×4 (00:06→12:31)
[2020-02-04] MEDS: SODIUM CHLORIDE 0.9% 1000ML 1,000 ML IV SCH (06:38)
[2020-02-04] MEDS: LEVOTHYROXINE SODIUM 112 MCG TABLET PO SCH (06:38)
[2020-02-04] MEDS ORDERED: INSULIN GLARGINE SOLOSTAR 100 UNITS/ML 3 ML PEN SC SCH (09:00)
[2020-02-04] MEDS: hydroCHLOROthiazide 25 MG TAB PO SCH (09:03)
[2020-02-04] MEDS: VALSARTAN 80 MG TAB PO SCH (09:03)
[2020-02-04] MEDS: POTASSIUM CHLORIDE 20 MEQ TABCR PO SCH (09:04)
[2020-02-04] MEDS: AMLODIPINE BESYLATE 5 MG TAB PO SCH (09:04)
[2020-02-04 09:16] LABS: BUN Creatinine Ratio 15.1 (10-20); Calcium 8.9 mg/dl (8.5-10.1); Creatinine Clr Calc Pharmacy 94.9 ml/min; Est GFR (African American) 104.5; Est GFR (Non-African American) 90.2; Potassium 4.3 mmol/L (3.5-5.1)
--- NOTE | 2020-02-04 13:32 | Pharmacy Report ---
Pharmacy Glycemic Short Note 2 - Date of Service February 04, 2020 - Glycemic Short BSG Results (Last 24 hours): 02/03/20 02/03/20 02/03/20 14:57 17:05 20:30 Glucose POC Glucose 224 H 201 H 196 H 02/04/20 02/04/20 02/04/20 00:03 04:03 08:12 Glucose POC Glucose 193 H 222 H 268 H 02/04/20 02/04/20 08:27 11:58 Glucose 300 H POC Glucose 289 H ASSESSMENT: 426: * Patient received total of 86 units of insulin yesterday, of which 25 were basal, 7 of iv insulin and 61 of correctional * Fasting BSG remains unchanged at 268 mg/dL - will increase basal 25-30% to 32 units daily * Will tighten CF/CR today - add overnight checks 02/02: * Patient received total of 50 units of insulin yesterday, of which 20 were basal, 10 of iv insulin, and 20 correctional * Fasting BSG elevated this am at 255 mg/dL - increased basal to 25 units this AM and also tightened CF/CR * BSG at lunch 318 - will give small IV insulin bolus / keep same parameters for novolog as just adjusted. BSG trending down on recheck after IV insulin given * Will add overnight checks to ensure BSG stable 02/01: * SS is a 50 year old female admitted for hyperglycemia (BSG > 600 mg/dL on admission) * BSGs have responded nicely to initial treatment of Lantus 20 units, Novolog 5 units SC, and IV regular insulin 10 units * BSG at 1828 of 222 mg/dL * Will try and stick with once daily basal insulin HS to facilitate dose selection for discharge * Anion Gap of 8, bicarb of 29 PLAN FOR INPATIENT GLYCEMIC CONTROL: * Holding outpatient oral diabetes medications * Basal insulin * increase to 32 units daily * Bolus insulin * NovoLog per scale ACHS or Q6hrs while NPO * Goal Range: Low 110 mg/dL - High 140 mg/dL * Correction Factor: 15 mg/dL/unit * Nutritional / Prandial insulin per carb ratio of 1 unit per 5 grams CHO consumed * Overnight checks at 00,04 tonight DISCHARGE PLAN: * A1c 13 % (goal <7%) * A1c is greater than or equal to 10% - guidelines recommend triple therapy with metformin + basal insulin + (GLP1-RA OR prandial insulin) * Recommended to provider seeing if GLP1-RA covered by patient's insurance - if not covered would recommend prandial insulin + basal insulin + continued home metformin * Appears home metformin recently increased in dosing - would continue same home dose and further titrate outpatient * BSGs during admission still elevated ~200s, therefore finalized plan for discharge still pending. Could consider Lantus 30 units daily and Novolog 10 units TIDM. Regimen is conservative and would likely need titrated further for glucose control therefore would recommend very close monitoring outpatient if discharged * Please note that the plan above was derived based on current level of insulin resistance and hospital stress. These recommendations are appropriate for inpatient admission only. Plan of care upon discharge will need to be reassessed to avoid potential outpatient hypo/hyperglycemia. Thank you.
[2020-02-05] MEDS ORDERED: INSULIN ASPART 100 UNITS/ML 3 ML PEN SC SCH
--- NOTE | 2020-02-08 23:31 | Discharge Summary ---
Date of Service February 04, 2020 Admission HPI Per Admitting Provider This is a 50-year-old female with past medical history of hypertension, hypothyroidism and a recent diagnosis of type 2 diabetes mellitus who presents today with hyperglycemia. Patient is a decent historian. Patient was diagnosed approximately 3 weeks ago. At that time, her blood sugars were over 500. She was started on metformin 500 mg daily. She was following her blood sugars but found that they remained extremely high. She presented to [facility] emergency room on 01/18 and was told to increase her metformin to 500 mg twice daily. At that time, hemoglobin A1c was 13. This was not sufficient and the patient saw her primary care physician 2 days ago. He gave her a sample of insulin told her to use 10 units at night. (We suspect this may have been Basaglar). Patient's blood sugars did not improve and she presented to the emergency room for further evaluation. Patient endorsed on multiple symptoms of diabetes including blurred vision, polydipsia, polyuria, ongoing thirst. She says she has had generalized weakness and very little energy for the past few weeks. 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 Patient's blood sugar on [facility] was initially 683. Patient was given Lantus 20 units subcu, NovoLog 5 units subcu, and regular insulin 10 units IV prior to my arrival. Accu-Chek performed while I was in the room had sugar down to 300 Principal Diagnosis Type 2 Diabetes Mellitus Discharge Exam Constitutional: WD/WN, vitals as above well developed and well nourished Eyes: PERRL, conjunctivae normal, anicteric sclerae ENMT: external ear and nose normal, oropharynx normal Neck: trachea midline, no thyromegaly Respiratory: normal respiratory effort, lungs clear to auscultation Cardiovascular: RRR, no murmur, no edema Gastrointestinal (Abdomen): normal bowel sounds, soft, nontender, no hepato splenomegaly Skin: no rashes, warm and dry Neurologic: normal touch/pain/proprioception Lymphatic: no cervical or axillary lymphadenopathy Discharge Data Allergies Allergy/AdvReac Type Severity Reaction Status Date / Time No Known Drug Allergies Allergy Verified 02/02/20 13:49 Consultations 02/02/20 15:21 ED Decision to Admit Stat 04/26/20 13:43 Consult [facility] news correspondent Routine Hospital Course (1) T2DM (type 2 diabetes mellitus): Patient is hyperglycemic, likely secondary to inadequate treatment of her diabetes. She may have a mild starvation ketosis but is not in isac DKA at this time. Already improved with insulin given the emergency room. On the following day, her blood sugar is better controlled. However, will need to follow her trend of her blood sugars before we discharge. For now we will continue glargine insulin 20 units nightly/. 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 Blood sugars were a little difficult to control. However patient tolerated 30 units of long acting insulin. Will discharge on triple therapy: metformin, short acting with meals and lantus. Anticipate that patient will require a higher dose of lantus at discharge. (2) Hypertension: Patient is on amlodipine 5 mg daily along with valsartan/hydrochlorothiazide combination pill which we will continue. Patient's blood pressure is acceptable at this time. (3) Hypothyroidism: Patient is on levothyroxine 112 mcg which we will continue. Total Time Total Time Spent Total Time Spent (In Minutes): 32 Discharge Plan Discharge Items Patient Disposition: Home - Self-Care Reason For Visit: HYPERGLYCEMIA Discharge Diagnosis: Diabetic patient Condition on Discharge: Good Activity: Resume your previous activity Non-emergency contact: Primary Care Provider Call non-emergency contact if: you have any medication questions Follow-up/Referrals: Yoni Bolaños MD [Primary Care Provider] - Diet: Carb Consistent or DM2 Addtl Attending Provider Instructions: You have been hospitalized for a UNCONTROLLED DIABETES. During your stay at [facility], we have made an effort to correct the problem that brought you to the hospital while keeping you as comfortable as possible. Medications were used to bring your condition under control and your discharge instructions will include directions for any medications you should take after leaving the hospital. Please make sure you see your Primary Care Provider as part of your follow up plan. Testing blood sugar is usually recommended before meals and at bedtime if you're taking multiple daily injections. The [place] [employer] (ADA) generally recommends the following target blood sugar levels: Between 80 and 130 milligrams per deciliter (mg/dL) or 4.4 to 7.2 millimoles per liter (mmol/L) before meals Less than 180 mg/dL (10.0 mmol/L) two hours after meal. Coronavirus disease 2019 (COVID-19) is a virus that causes a respiratory illness. It is caused by a coronavirus called 2019 novel coronavirus (2019- nCoV). There are many types of coronavirus. Coronaviruses are a very common cause of bronchitis. They may sometimes cause lung infection(pneumonia). Symptoms can range from mild to severe respiratory illness. These viruses are also foundin some animals. COVID-19 was first found in people in [facility], in late 2018. In 2020, several cases of COVID-19 have been confirmed in the [place] Public health officials are working to find the source. How the virus spreads is not yet fully known. It may be spread through droplets of fluid that a person coughs or sneezes into the air. It may be spread if you touch a surface with virus on it, such as a handle or object, and then touch your mouth. What are the symptoms of COVID-19? Some people have no symptoms or mild symptoms. Symptoms may appear 2 to 14 days after contact with the virus. Symptoms can include: Fever Coughing Trouble breathing What are possible complications from COVID-19? In many cases, this virus can cause infection (pneumonia) in both lungs. In some cases, this can cause . How is COVID-19 diagnosed? Your healthcare provider will ask about your symptoms. He or she will also ask about your recent travel and contact with sick people. Testing for the virus is only done through the CDC. If yourhealthcare provider thinks you may have COVID- 19, he or she will work with your local health department and the CDC on testing. Follow all instructions from your healthcare provider. COVID-19 is diagnosed by: Nasal and throat swab. A cotton-tipped swab is wiped inside your nose or throat. This is done to check for viruses in your nasal mucus. Sputum culture. A small sample of mucus coughed from your lungs (sputum) is collected if you have a cough. It is checked for the virus. How is COVID-19 treated? There is currently no medicine to treat the virus. Treatment is done to help your body while it fights the virus. This is known as supportive care. Supportive care may include: Pain medicine. These include acetaminophen and ibuprofen. They are used to help ease pain and reduce fever. Bed rest. This helps your body fight the illness. For severe illness, you may need to stay in the hospital. Care during severe illness may include: IV (intravenous) fluids.These are given through a vein to help keep your body hydrated. Oxygen. Supplemental oxygen or ventilation with a breathing machine (ventilator) may be given. This is done to keep enough oxygen in your body. Are you at risk for COVID-19? If youve been to a place where people have been sick with this virus, you are at risk for infection. You are at risk if you: Recently traveled to an affected area Had contact with a sick person who recently traveled to this area Had contact with a person who was diagnosed with COVID-19 How can COVID-19 be prevented? There is no vaccine yet. The best prevention is to not have contact with the virus. The CDC advises that people should not travel to areas where there are COVID-19 outbreaks right now for any reason that is not urgent. To help prevent spreading the infection, wash your hands often, or use an alcohol-basedhand information specialist. If you are in an area with COVID-19: Wash your hands often. Or use an alcohol-based hand information specialist often. Only touch your eyes, nose, or mouth with clean hands. Dont have contact with people who are sick. Follow local instructions about being in public. For example, you may be told to not use public transport for a period of time. Stay away from markets that have live or animals. Wash your hands after touching any animals. Don't touch animals that may be sick. Dont share eating or drinking tools with sick people. Dont kiss someone who is sick. Clean surfaces often with disinfectant. If you were in an area with COVID-19 in the last 14 days: Call your healthcare provider. He or she can talk with local health staff to see what action may be needed. Follow all instructions from your provider. Take your temperature every morning and evening for at least 14 days. This is to check for fever. Keep a record of the readings. Keep watch for symptoms of the virus. Tell your provider right away if you have symptoms. If you were in an area with COVID-19 and have a fever or other symptoms: Dont panic. Keep in mind that other illnesses can cause similar symptoms. Stay away from work, school, and public places. Limit physical contact with family members. Don't kiss anyone or share eating or drinking utensils. Clean surfaces you touch with disinfectant. This is to help prevent the virus from spreading. Call your healthcare provider. Explain that you have been exposed to COVID-19 and have symptoms. Do this before going to any hospital. Wait for instructions. Keep in mind that healthcare staff may wear protective equipment such as masks, gowns, gloves, and eye protection. You may be put in a separate room. This is to prevent the possible virus from spreading. Tell the healthcare staff about recent travel. This includes local travel on public transport. Staff may need to find other people you have been in contact with. Follow all instructions the healthcare staff give you. If you have been diagnosed with COVID-19 Follow all instructions from your healthcare provider. Dont leave your home, except to get medical care. Call your healthcare providers office before going. They can prepare and give you instructions. This will help prevent the virus from spreading. Dont go to work, school, or public areas. Dont use public transport or taxis. Stay away from other people in your home. Have them wear face masks around you. Dont share household items or food. Wear a face mask if you can. This includes at home or in a medical facility. Cover your face with a tissue when you cough or sneeze. Throw the tissue away. Wash your hands. Wash your hands often. Caregivers should: Follow all instructions from healthcare staff. Wear a face mask and protective clothing as advised. Wash hands often. Keep track of the sick persons symptoms. Clean surfaces, fabrics, and laundry thoroughly. Keep other people away from the sick person. When to call your healthcare provider Call your healthcare provider: If youve recently traveled and have symptoms If you have been diagnosed with COVID-19 and your symptoms are worse To learn more To find out more about COVID-19, visit the CDC website at www.cdc.gov/coronavirus/2019-ncov/index.html. 9235-[address] [employer] [place] [address], [place] [address]. All rights reserved. This information is not intended as a substitute for professional medical care. Always follow your healthcare professional's instructions. This information has been adapted from [employer] Pending Studies at Discharge: No Stand-Alone Forms: [facility], Smoking Cessation Medications and DC Order Prescriptions: New Lantus Solostar U-100 Insulin 100 unit/mL (3 mL) Insulin Pen 30 units SC QAM Qty: 15 RF: 0 insulin aspart U-100 [Novolog Flexpen U-100 Insulin] 100 unit/mL (3 mL) Insulin Pen 10 units SC TIDM Qty: 15 RF: 0 Continued levothyroxine 112 mcg capsule 112 mcg PO DAILY Qty: 30 RF: 5 valsartan-hydrochlorothiazide 160-12.5 mg tablet 1 tab PO QAM RF: 0 amlodipine [Norvasc] 5 mg tablet 5 mg PO QAM RF: 0 Discontinued insulin glargine 100 unit/mL solution 10 units SQ HS RF: 0 No Action (DME) lancets [Accu-Chek Multiclix Lancet] Misc See Rx Instructions .ROUTE .MEDSUPPLY Qty: 50 RF: 2 (DME) blood sugar diagnostic [Accu-Chek Nyasia Plus test strp] Strip See Rx Instructions .ROUTE .MEDSUPPLY Qty: 30 RF: 2 metformin 500 mg tablet 500 mg PO BID Qty: 60 RF: 3 Discharge Orders: Discharge Order (Routine); Ordered 02/04/20 Ordered By: Chas Oconnell/Other Patient Handouts: Diabetes Exams Tests Admission Data Admit Date/Time: 02/02/20 17:14 Attending Provider: Chas Johnson Admit Provider: Christo Guerrero Primary Care Provider: Yoni Bolaños Other Providers: Christo Guerrero Other Interventions: Discharge Summary Assessment (RN) Last Done: 02/04/20 14:11 DC Date/Time DO NOT enter until pt leaves facility: 02/04/20 15:08 Coding Level of Care Code 67538 OBS Care - Discharge Diagnoses T2DM (type 2 diabetes mellitus) E11.9 Hypertension I10 Hypothyroidism E03.9
== END 2020-02-04 15:08 | disposition home or self-care (01) ==
LOC: 3E 13:12 → ED 13:12 → SUATTDRO 17:14 → 3E 17:49